=== PATIENT | female | born 1945 | race Caucasian/White ===

== ENCOUNTER 2017-12-24 06:41 | Day surgery (SDC) | payer OTHER, MEDICARE ==
[~2017-12-24] VITALS: Ht 162.6 cm; Wt 98.0 kg
[~2017-12-24 06:41] MED LIST: ABILIFY5 MG PO; ADVAIR 500-501 EACH IH; ADVAIR 500/501 DISK IH; ALPHAGAN P100 DROP/5 LEFT EYE; ALPRAZOLAM1 MG PO; AMBIEN10 M1 PO; ARICEPT10 MG PO; ARICEPT5 MG PO; BREO ELLIPTA 21 EACH IH; BUSPAR10 MG PO; BUSPAR15 MG PO; CARAFATE1 GM PO; CENTRUM SILVER1 EACH PO; CITALOPRAM HBR20 M1 PO; CITALOPRAM HBR20 MG PO; CITALOPRAM HBR40 M1 PO; COZAAR50 MG PO; CYANOCOBAL1000 MCG/2 IM; CYMBALTA30 MG PO; DILTIAZEM 24HR180 MG PO; DONEPEZIL HCL5 MG PO; EFFEXOR XR75 MG PO; FEXOFENADINE-P1 EAC1 PO; GABAPENTIN300 MG PO; GABAPENTIN600 MG PO; INDOCIN25 MG PO; IPRATROPIUM BRO15 ML NS; LANSOPRAZOLE30 MG PO; MISOPROSTOL100 MCG PO; MISOPROSTOL200 MCG PO; MUCINEX600 MG PO; MULTIVITAMIN1 EAC1 PO; NAPROXEN500 MG PO; NASONEX17 GM BOTH NARES; NEURONTIN100 MG PO; NEURONTIN600 MG PO; PANTOPRAZOLE SO40 MG PO; PLAVIX75 MG PO; PRAVACHOL40 MG PO; PRAVACHOL80 MG PO; PREDNISONE20 MG PO; PREVACID30 MG PO; PROAIR HFA8.5 GM IH; PROVENTIL,2.5 MG/3 M IH; RAPINIROLE; RECLAST5 MG/100 M IV; REQUIP0.5 MG PO; SINGULAIR10 MG PO; TIZANIDINE HCL4 M1 PO; TYLENOL PM1 CAPLET PO; VENLAFAXINE HC150 M1 PO; VENLAFAXINE HCL75 M3 PO; VITAMIN D1000 UNIT PO; VITAMIN D250000 UNIT PO; XALATAN2.5 ML BOTH EYES; ZYBAN 150 MG T150 MG PO
[2017-12-24 07:58] VITALS: BP 148/70
[2017-12-24 15:35] VITALS: BP 141/65
[2017-12-24 20:27] VITALS: BP 123/56
[2017-12-25 00:12] VITALS: BP 135/73
[2017-12-25 04:00] VITALS: BP 149/65
[2017-12-25] MEDS ORDERED: OXYCODONE HCL5 MG PO (08:31)
[2017-12-25 08:34] VITALS: BP 137/66
[2017-12-25 11:53] VITALS: BP 137/69
== END 2017-12-25 12:45 ==
LOC: SDC 06:41 → 2SOUTH 11:45 → 3WEST 11:45 → 2SOUTH 11:45 → CANRESERV 11:55 → ENRESERV 11:55 → SDC 15:07 → ENRESERV 15:07 → 3WEST 15:23
PROC: 0RRK0J7 Replacement of Left Shoulder Joint with Synthetic Substitute, Glenoid Surface, Open Approach (ICD-10-PCS; principal; 2017-12-24)
DX: Z87.11 Personal history of peptic ulcer disease (principal); I10 Essential (primary) hypertension; E78.5 Hyperlipidemia, unspecified; M81.0 Age-related osteoporosis without current pathological fracture; F41.9 Anxiety disorder, unspecified; E53.8 Deficiency of other specified B group vitamins; H40.9 Unspecified glaucoma; K31.84 Gastroparesis; K58.9 Irritable bowel syndrome, unspecified; K21.9 Gastro-esophageal reflux disease without esophagitis; Z90.710 Acquired absence of both cervix and uterus; Z98.84 Bariatric surgery status; Z88.6 Allergy status to analgesic agent; Z79.899 Other long term (current) drug therapy; Z68.38 Body mass index [BMI] 38.0-38.9, adult
CPT/HCPCS: 94640; 94640 76; 94799; 99202; C1776; G0378; J0690; J1100; J1170; J2405; J2795; J3010; J7030; J7050